=== PATIENT | female | born 1930 | race Caucasian/White ===

== ENCOUNTER → 2016-10-27 | Outpatient (CLI) | payer BC ==
[~2016-10-27] MED LIST: AMLO-110 PO; ASPI-435 PO; ATOR-22 PO; CITA10TA4 PO; DIPH-416 PO; FERR325T18 PO; LABE300T PO; LOSA1TAB38 PO; NVLGI7030 SC; OMEP20CA9 PO
== END | disposition home or self-care (01) ==
LOC: C.LABSPEC 14:56
PROVIDERS: ATTEND Internal Medicine
DX: N39.0 Urinary tract infection, site not specified (principal)

== ENCOUNTER → 2016-12-09 | Outpatient (CLI) | payer BC | END | disposition home or self-care (01) | LOC: C.LABSPEC 12:31 | PROVIDERS: ATTEND Internal Medicine | DX: N39.0 Urinary tract infection, site not specified (principal) ==

== ENCOUNTER 2016-12-30 08:40 | Emergency (ER) | payer BC ==
[~2016-12-30 08:40] MED LIST changes: -DIPH-416 PO
[2016-12-30 08:45] VITALS: PULSE 0
--- NOTE | 2016-12-30 08:46 | EMERGENCY ROOM VISIT NOTE ---
History Report prepared by Jarod: Misty Overton Under the Supervision of: Dr. Rocio Hernandez D.O. First contact with patient: 08:41 Chief Complaint: CARDIAC ARREST Stated Complaint: CARDIAC ARREST History of Present Illness The patient is an 86 year old female who presents to the Emergency Room via EMS to be evaluated for cardiac arrest this morning. Per EMS, the patient has been short of breath for the past 3-4 days that worsened this morning. She has a recent history of UTI and sepsis. Her breathing was labored when police arrived to the scene and she went into cardiac arrest just prior to ambulance arrival. CPR was started immediately. She was given a total of 5 rounds of epinephrine and was intubated in the field. Her BSG was 171. History limited secondary to cardiac arrest. Addendum: Family now in attendance. They state they had a baby monitor in her room and she called out complaining of shortness of breath. They felt that the symptoms were somewhat sudden in onset. They deny any known history of cardiac or pulmonary disease although she had been complaining of mild dyspnea for a few days. She has had problems with recurrent UTIs for the past 2 months and has been under the care of her doctor. Source of History: EMS History Limited By: cardiac arrest Onset: this morning Position: other (global) Quality: other (cardiac arrest) Timing: constant Associated Symptoms: + SOB Review of Systems Unobtainable secondary to cardiac arrest. Past Medical & Surgical Medical Problems: (1) Diabetes (2) Diabetes (3) Diverticulosis Colon (W/O Ment Of Hemorrhage) (4) Esophageal Reflux (5) Hypertension Nos (6) MSC,ABN ECG, (7) Pure Hypercholesterolem Family History Not pertient due to age Social History Smoking Status: Former Smoker Drug Use: none Housing Status: lives with family Occupation Status: retired Current/Historical Medications Scheduled Amlodipine (Norvasc), 5 MG PO DAILY Aspirin (Aspirin 81), 1 TAB PO DAILY Atorvastatin (Lipitor), 20 MG PO DAILY Citalopram Hydrobromide (Citalopram Hydrobromide), 10 MG PO QAM Ferrous Gluconate (Ferrous Gluconate), 324 MG PO TIDM Insulin Aspart 70/30 (Novolog Mix 70/30), Unknown Dose SC BID Labetalol (Normodyne), 300 MG PO BID Losartan Potassium (Cozaar), 100 MG PO DAILY Omeprazole (Prilosec), 20 MG PO DAILY Allergies Coded Allergies: No Known Allergies (Verified , 06/10/16) Physical Exam Vital Signs Date Time Temp Pulse Resp B/P Pulse Ox O2 Delivery O2 Flow Rate FiO2 12/30/16 08:45 0 12/30/16 08:44 30 Physical Exam GENERAL: The patient is an unresponsive 86 year old female, intubated, CPR in progress. VITALS: asystolic, apneic EYES: Pupils fixed and dilated. THROAT: intubated. NECK: Supple, No JVD THORAX : Symmetrical , no crepitence LUNGS : Clear with bagging. HEART: No auscultated heart sounds. ABDOMEN: Distended EXTREMITIES : No deformities, cool to touch, diminished pulses. No edema NEUROLOGIC: Unresponsive. Medical Decision & Procedures ED Course 0840: Past medical records reviewed. The patient was evaluated in room B1. A physical examination was performed. On examination she was in cardiac arrest. Intubated with assisted respirations and compressions - Arsh randhawa. She had been in a prolonged prehospital cardiac arrest for over 30 minutes. Resuscitation was ceased and she was noted to be asystolic. Resuscitation was then discontinued. She was pronounced at 842. Family was present and has been notified. 0842: The patient at this time. Medical Decision EMR, nurse's notes, diagnostic studies personally reviewed Differential diagnosis-see above The chart was completed utilizing [employer] Speech Voice Recognition Software. Grammatical errors, random word insertions, pronoun errors, and incomplete sentences are an occasional consequence of this system due to software limitations, ambient noise, and hardware issues. Any formal questions or concerns about the content, text, or information contained within the body of this dictation should be directly addressed to the physician for clarification. Impression Primary Impression: Cardiac arrest Scribe Attestation The scribe's documentation has been prepared under my direction and personally reviewed by me in its entirety. I confirm that the note above accurately reflects all work, treatment, procedures, and medical decision making performed by me. Departure Information Dispostion (0842) Referrals Tong Danielson M.D. (PCP) Forms WORK / SCHOOL INSTRUCTIONS, HOME CARE DOCUMENTATION FORM, IMPORTANT VISIT INFORMATION Patient Instructions My [facility]
== END 2016-12-30 09:01 | disposition expired ==
LOC: EDBD 08:40 → C.EDB 08:42 → C.EDA 09:01
DX: I46.9 Cardiac arrest, cause unspecified (principal); E11.9 Type 2 diabetes mellitus without complications; K21.9 Gastro-esophageal reflux disease without esophagitis; I10 Essential (primary) hypertension; E78.00 Pure hypercholesterolemia, unspecified; Z87.891 Personal history of nicotine dependence; Z79.82 Long term (current) use of aspirin; Z79.899 Other long term (current) drug therapy; Z79.4 Long term (current) use of insulin